=== PATIENT | male | born 1980 | race Caucasian/White ===

== ENCOUNTER 2020-07-13 07:04 | Day surgery (SDC) | payer MEDICAID ==
[~2020-07-13 07:04] MED LIST: Lactated Ringers 1,000 ML IV SCH; Lidocaine 1%/Sod Bicarbonate in NS 8.4% 1 ML Syringe IDERM PRN; Sodium Chloride 0.9% 10 ML Syringe FLUSH PRN
[2020-07-13] MEDS ORDERED: EPINEPHrine 1 MG/ML 30 ML MDV IRR SCH (07:15)
--- NOTE | 2020-07-13 07:31 | PCM.PREANE ---
Preanesthetic Assessment - Procedure Proposed Procedure: right knee video arthrosocopy - Anesthesia/Transfusion/Family Hx Anesthesia History: No Prior Anesthesia Family History of Anesthesia Reaction: No Transfusion History: No Prior Transfusion(s) - Review of Systems General: No Symptoms Pulmonary: No Symptoms Cardiovascular: No Symptoms Gastrointestinal: No Symptoms Neurological: No Symptoms - Physical Assessment NPO Status Date: 07/12/20 NPO Status Time: 23:30 Vital Signs: 109/71 74 96% 20 96.9 Height: 5 ft 6 in Weight: 103.7 kg ASA Class: 2 Mental Status: Alert & Oriented x3 Airway Class: Mallampati = 1 Dentition: Reports: Broken Tooth/Teeth Thyro-Mental Finger Breadths: 3 Mouth Opening Finger Breadths: 3 ROM/Head Extension: Full Lungs: Clear to Auscultation, Normal Respiratory Effort Cardiovascular: Regular Rate, Regular Rhythm - Lab Values: Laboratory Last Values MRSA (PCR) Negative 07/06/20 15:52 - Allergies Allergies/Adverse Reactions: Allergies Allergy/AdvReac Type Severity Reaction Status Date / Time erythromycin base Allergy Nausea Verified 07/12/20 11:58 pemoline Allergy Nausea Verified 07/12/20 11:58 Sulfa (Sulfonamide Allergy Nausea Verified 07/12/20 11:58 Antibiotics) - Blood Blood Available: No - Acknowledgements Anesthesia Type Planned: General Anesthesia Pt an Appropriate Candidate for the Planned Anesthesia: Yes Alternatives and Risks of Anesthesia Discussed w Pt/Guardian: Yes Pt/Guardian Understands and Agrees with Anesthesia Plan: Yes PreAnesthesia Questionnaire HEENT History: Reports: None Cardiovascular History: Reports: None Respiratory History: Reports: None Gastrointestinal History: Reports: None Genitourinary History: Reports: None 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 Musculoskeletal History: Reports: Arthritis, Other (See Below) Other Musculoskeletal History: degenerative joint disease, right shoulder pain, right knee pain, right patella disorder Neurological History: Reports: Concussion Psychiatric History: Reports: None Endocrine/Metabolic History: Reports: Obesity/BMI 30+ Hematologic History: Reports: None Immunologic History: Reports: None Oncologic (Cancer) History: Reports: None - Past Surgical History Head Surgeries/Procedures: Reports: None HEENT Surgical History: Reports: None Cardiovascular Surgical History: Reports: None Respiratory Surgical History: Reports: None GI Surgical History: Reports: None Male Surgical History: Reports: None Endocrine Surgical History: Reports: None Neurological Surgical History: Reports: None Musculoskeletal Surgical History: Reports: None Oncologic Surgical History: Reports: None Dermatological Surgical History: Reports: None - SUBSTANCE USE Tobacco Use Within Last Twelve Months: Smokeless Tobacco Second Hand Smoke Exposure: Yes Days Per Week of Alcohol Use: 0 Recreational Drug Use History: No - HOME MEDS Home Medications: Home Meds Baclofen 10 mg PO TID 07/12/20 [History] Pregabalin [Lyrica] 75 mg PO BID 07/12/20 [History] Aspirin 325 mg PO BID #84 tab 07/13/20 [Rx] Hydrocodone/Acetaminophen [[place] 5-325 Tablet] 1 - 2 tab PO Q6H PRN #20 07/13/20 [Rx] - CURRENT (IN HOUSE) MEDS Current Meds: Current Medications Epinephrine HCl (Adrenalin) 3 mg IRR ONETIME EBER Stop: 07/13/20 12:00 Lactated Ringer's (Ringers, Lactated) 1,000 mls @ 125 mls/hr IV ASDIRECTED EBER Stop: 07/13/20 23:00 Lidocaine/Sodium Bicarbonate (Buffered Lidocaine 1% In Ns 8.4%) 0.25 ml IDERM ONETIME PRN PRN Reason: Prior to IV Start Stop: 07/13/20 18:00 Sodium Chloride (Saline Flush) 10 ml FLUSH ASDIRECTED PRN PRN Reason: Keep Vein Open Stop: 07/13/20 18:00
[2020-07-13] MEDS ORDERED: Bupivacaine 0.25% 10 ML SDV ONE (07:38)
[2020-07-13] MEDS ORDERED: Ondansetron 4 MG/2 ML SDV ONE (08:07)
[2020-07-13] MEDS ORDERED: Rocuronium 50 MG/5 ML Vial ONE ×2 (08:07→08:47)
[2020-07-13] MEDS ORDERED: Midazolam 1 MG/ML 2 ML SDV ONE (08:08)
[2020-07-13] MEDS ORDERED: Propofol 200 MG/20 ML SDV ONE (08:08)
[2020-07-13] MEDS ORDERED: fentaNYL 250 MCG/5 ML SDV ONE (08:08)
[2020-07-13] MEDS ORDERED: Lidocaine 1% 4 ML ONE (08:08)
[2020-07-13] MEDS ORDERED: Ketorolac 30 MG/ML SDV ONE (08:08)
[2020-07-13] MEDS ORDERED: ceFAZolin 1 GM Vial ONE (08:11)
[2020-07-13] MEDS ORDERED: Lactated Ringers 1,000 ML ONE (08:57)
[2020-07-13] MEDS ORDERED: HYDROmorphone 0.5 MG/0.5 ML Syringe ONE ×2 (08:58→08:59)
[2020-07-13] MEDS ORDERED: fentaNYL 100 MCG/2 ML SDV IVPUSH PRN (09:59)
--- NOTE | 2020-07-13 10:00 | PCM.POSTAN ---
POST ANESTHESIA ASSESSMENT - MENTAL STATUS Mental Status: Alert, Oriented - VITAL SIGNS Vital Signs: Last Vital Signs Temp 36.1 C 07/13/20 07:10 Pulse 74 07/13/20 07:10 Resp 16 07/13/20 07:10 BP 109/71 07/13/20 07:10 Pulse Ox 96 07/13/20 07:10 - RESPIRATORY Respiratory Status: Respiratory Rate WNL, Airway Patent, O2 Saturation Stable, Supplemental Oxygen - CARDIOVASCULAR CV Status: Pulse Rate WNL, Blood Pressure Stable - GASTROINTESTINAL GI Status: No Symptoms - PAIN Pain Score: 0 - POST OP HYDRATION Hydration Status: Adequate & Stable - OBSERVATIONS Free Text/Narrative:: no anesthesia complications noted
[2020-07-13] MEDS ORDERED: Acetaminophen/HYDROcodone 325-5 MG Tab PO PRN (10:44)
--- NOTE | 2020-07-13 11:29 | PCM48HPAN ---
Post Anesthesia Note - EVALUATION WITHIN 48HRS OF ANESTHETIC Vital Signs in Normal Range: Yes Patient Participated in Evaluation: Yes Respiratory Function Stable: Yes Airway Patent: Yes Cardiovascular Function Stable: Yes Hydration Status Stable: Yes Pain Control Satisfactory: Yes Nausea and Vomiting Control Satisfactory: Yes Mental Status Recovered: Yes Vital Signs: Last Vital Signs Temp 36.1 C 07/13/20 10:45 Pulse 74 07/13/20 07:10 Resp 16 07/13/20 10:45 BP 137/87 07/13/20 10:45 Pulse Ox 97 07/13/20 10:45 - COMMENTS/OBSERVATIONS Free Text/Narrative:: no anesthesia complications noted
--- NOTE | 2020-07-19 16:18 | PCM.OPNOTE ---
- General Post-Op/Procedure Note Date of Surgery/Procedure: 07/13/20 Operative Procedure(s): right knee video arthroscopy with partial lateral meniscectomy and partial synovectomy Pre Op Diagnosis: right knee lateral meniscus tear with synovitis Post-Op Diagnosis: Same Anesthesia Technique: General LMA, Local Primary Surgeon: Dorian Jim Anesthesia Provider: George Garcia Plumbing Installer: Debi Leblanc E[place]at[place] in mLs: 5 Complications: None Condition: Good
--- NOTE | 2020-07-21 08:27 | OR ---
DATE OF OPERATION: 07/13/2020 SURGEON: Dorian Jim MD OPERATION PERFORMED: Right knee video arthroscopy with partial lateral meniscectomy and partial synovectomy. PREOPERATIVE DIAGNOSIS: Right knee lateral meniscus tear with synovitis. POSTOPERATIVE DIAGNOSIS: Right knee lateral meniscus tear with synovitis. ANESTHESIA: General LMA with local. ANESTHESIA PROVIDER: George Garcia CRNA. CLINICAL TRIALS MANAGER: Debi Leblanc PA-C ESTIMATED BLOOD LOSS: 5 mL. COMPLICATIONS: None. CONDITION: Stable. DESCRIPTION OF PROCEDURE: The patient was identified in the preop holding area. Proper site was marked and identified by surgeon. The patient was taken back to the operating table, where after adequate anesthesia, the patient's left lower extremity was placed in a well leg rock. Right lower extremity had a nonsterile tourniquet applied and a C-clamp rock applied. Foot of the bed was then lowered. Right lower extremity was then sterilely prepped and draped in the usual sterile fashion. OR time-out was performed. The patient received 2 g IV Ancef. Right lower extremity was exsanguinated. Tourniquet was insufflated to 250 mmHg. Standard anterolateral portal incision was made. Scope trocar was introduced to the knee joint. Patellofemoral joint showed minimal grade 1 chondromalacia. There was severe synovitis as well of the plica noted. At this time, attention was turned to the medial compartment, and with the use of a spinal needle, anteromedial portal was created. The patient was noted to have no meniscal tear and no chondromalacia of the medial compartment. The ACL was intact in the notch. Lateral compartment did show an anterior to midportion tear of the lateral meniscus with a free bucket-handle lesion. At this time, a partial lateral meniscectomy was performed back to a stable rim roughly taking only 15% of the lateral meniscus. The rest showed only grade 1 chondromalacia. At this time, a partial synovectomy was performed of the severe synovitis on the lateral and anterior aspect of the knee near the fat pad as well as removal of the plica. Excess saline was drained from the knee. 3-0 nylon sutures were used for closure of the skin. The patient tolerated the procedure well and sent to PACU in stable condition. MMODAL /[id number]
== END 2020-07-13 12:13 | disposition home or self-care (01) ==
LOC: JD.SDS 07:04
PROVIDERS: ATTEND Orthopaedic Surgery
DX: S83.251A Bucket-handle tear of lateral meniscus, current injury, right knee, initial encounter (principal); F17.290 Nicotine dependence, other tobacco product, uncomplicated; Z01.812 Encounter for preprocedural laboratory examination; Z20.828 Contact with and (suspected) exposure to other viral communicable diseases; Z88.1 Allergy status to other antibiotic agents; Z79.899 Other long term (current) drug therapy; Z88.8 Allergy status to other drugs, medicaments and biological substances; Z88.2 Allergy status to sulfonamides; E66.9 Obesity, unspecified; Z79.82 Long term (current) use of aspirin
CPT/HCPCS: 29881; 87641; A9270; J0171; J0690; J1170; J1885; J2001; J2250; J2405; J2704; J3010; J3490; J7120; 01400

== ENCOUNTER 2022-01-18 13:37 | Emergency (ER) | payer MEDICAID ==
[2022-01-18] MEDS ORDERED: Ketorolac 15 MG/ML SDV IM ONE (14:57)
[2022-01-18] MEDS ORDERED: Gabapentin 600 MG Tab PO STA (14:57)
== END 2022-01-18 16:39 | disposition home or self-care (01) ==
LOC: JD.ED 13:37
DX: M54.41 Lumbago with sciatica, right side (principal); M54.42 Lumbago with sciatica, left side; E66.9 Obesity, unspecified; Z68.30 Body mass index [BMI] 30.0-30.9, adult; Z86.16 Personal history of COVID-19; Z88.1 Allergy status to other antibiotic agents; Z88.8 Allergy status to other drugs, medicaments and biological substances; Z88.2 Allergy status to sulfonamides; Z79.82 Long term (current) use of aspirin
CPT/HCPCS: 96372; 99283; A9270; J1885; 99284

== ENCOUNTER 2022-02-25 17:44 | Emergency (ER) | payer MEDICAID | END 2022-02-25 19:07 | disposition home or self-care (01) | LOC: JD.ED 17:44 | DX: G56.02 Carpal tunnel syndrome, left upper limb (principal); Z79.899 Other long term (current) drug therapy; Z88.1 Allergy status to other antibiotic agents; Z88.2 Allergy status to sulfonamides; Z88.8 Allergy status to other drugs, medicaments and biological substances; Z86.16 Personal history of COVID-19 | CPT/HCPCS: 99282; 99283-25 ==

== ENCOUNTER 2022-04-15 11:40 | Emergency (ER) | payer MEDICAID ==
[2022-04-15] MEDS ORDERED: Sodium Chloride 0.9% 10 ML Syringe FLUSH PRN (11:56)
[2022-04-15] MEDS ORDERED: HYDROmorphone 0.5 MG/0.5 ML Syringe IVPUSH ONE ×2 (11:57→13:14)
[2022-04-15] MEDS ORDERED: Ketorolac 30 MG/ML SDV IVPUSH ONE (13:14)
== END 2022-04-15 15:05 | disposition home or self-care (01) ==
LOC: JD.ED 11:40 → SUPCPDRO 11:40 → JD.ED 15:05
DX: G89.29 Other chronic pain (principal); M54.50 Low back pain, unspecified; M54.2 Cervicalgia; F17.210 Nicotine dependence, cigarettes, uncomplicated; E66.9 Obesity, unspecified; Z68.37 Body mass index [BMI] 37.0-37.9, adult; Z88.2 Allergy status to sulfonamides; Z88.8 Allergy status to other drugs, medicaments and biological substances; Z88.1 Allergy status to other antibiotic agents
CPT/HCPCS: 96374; 96375; 96376; 99283; J1170; J1885; J3360; J3490

== ENCOUNTER 2022-05-24 17:42 | Emergency (ER) | payer MEDICAID ==
[2022-05-24] MEDS ORDERED: HYDROmorphone 1 MG/ML Syringe IM ONE (18:16)
[2022-05-24] MEDS ORDERED: Diazepam 5 MG Tab PO ONE (18:16)
[2022-05-24] MEDS ORDERED: Ketorolac 60 MG/2 ML SDV IM ONE (18:16)
== END 2022-05-24 18:43 | disposition home or self-care (01) ==
LOC: JD.ED 17:42
DX: M54.50 Low back pain, unspecified (principal); E66.9 Obesity, unspecified; Z68.38 Body mass index [BMI] 38.0-38.9, adult; Z88.1 Allergy status to other antibiotic agents; Z88.2 Allergy status to sulfonamides; Z88.8 Allergy status to other drugs, medicaments and biological substances; Z79.899 Other long term (current) drug therapy; Z86.16 Personal history of COVID-19
CPT/HCPCS: 96372; 99283; A9270-GY; J1170; J1885

== ENCOUNTER 2022-06-17 18:40 | Emergency (ER) | payer MEDICAID ==
[2022-06-17] MEDS ORDERED: Sodium Chloride 0.9% 1,000 ML IV SCH (19:15)
[2022-06-17] MEDS ORDERED: Ondansetron 4 MG/2 ML SDV IVPUSH ONE (19:15)
[2022-06-17] MEDS ORDERED: Sodium Chloride 0.9% 10 ML Syringe FLUSH PRN (19:15)
[2022-06-17 20:56] LABS: ESTIMATED GFR 98 mL/min (>60)
== END 2022-06-17 22:07 | disposition home or self-care (01) ==
LOC: JD.ED 18:40
DX: R42 Dizziness and giddiness (principal); E66.9 Obesity, unspecified; Z68.30 Body mass index [BMI] 30.0-30.9, adult; Z88.1 Allergy status to other antibiotic agents; Z88.8 Allergy status to other drugs, medicaments and biological substances; Z88.2 Allergy status to sulfonamides; Z86.16 Personal history of COVID-19
CPT/HCPCS: 36415; 70450; 80053; 83735; 84484; 85025; 93005; 96361; 96374; 99284; A9270; J2405; J3490; J7030

== ENCOUNTER 2022-06-24 12:59 | Emergency (ER) | payer MEDICAID ==
[2022-06-24] MEDS ORDERED: Dextrose 5%-0.9% NaCl 1,000 ML IV SCH (13:30)
[2022-06-24] MEDS ORDERED: LORazepam 2 MG/ML SDV IVPUSH ONE (13:55)
[2022-06-24] MEDS ORDERED: Metoclopramide 10 MG/2 ML SDV IVPUSH ONE (13:56)
== END 2022-06-24 18:33 | disposition home or self-care (01) ==
LOC: JD.ED 12:59
DX: I95.1 Orthostatic hypotension (principal); E66.9 Obesity, unspecified; Z68.32 Body mass index [BMI] 32.0-32.9, adult
CPT/HCPCS: 36415; 70450; 71045; 72125; 80053; 80307; 82009; 82553; 83605; 83735; 83880; 84484; 85025; 85379; 85610; 85730; 86140; 93005; 96361; 96374; 96375; 99285; J2060; J2765; J7042; 93010; 99283

== ENCOUNTER 2022-08-19 11:30 | Emergency (ER) | payer MEDICAID ==
[2022-08-19] MEDS ORDERED: Sodium Chloride 0.9% 10 ML Syringe FLUSH PRN (12:16)
[2022-08-19 12:50] LABS: ESTIMATED GFR 111 mL/min (>60)
[2022-08-19 12:55] LABS: ACETAMINOPHEN 0 ug/mL (10-30)
== END 2022-08-19 15:06 | disposition home or self-care (01) ==
LOC: JD.ED 11:30
DX: R56.9 Unspecified convulsions (principal); J45.909 Unspecified asthma, uncomplicated; E66.9 Obesity, unspecified; Z68.36 Body mass index [BMI] 36.0-36.9, adult; Z88.1 Allergy status to other antibiotic agents; Z88.2 Allergy status to sulfonamides; Z88.8 Allergy status to other drugs, medicaments and biological substances; Z79.899 Other long term (current) drug therapy
CPT/HCPCS: 36415; 70450; 71045; 80053; 80143; 80179; 80306; 80307; 81003; 82550; 83605; 83735; 84443; 84484; 85025; 86140; 93005; 99285; J3490

== ENCOUNTER 2023-08-02 14:23 | Emergency (ER) | payer MEDICAID ==
[2023-08-02] MEDS ORDERED: Sodium Chloride 0.9% 10 ML Syringe FLUSH PRN (16:10)
[2023-08-02] MEDS ORDERED: Sodium Chloride 0.9% 1,000 ML IV STA (16:11)
[2023-08-02 17:06] LABS: BASOPHILS PERCENT AUTO 0.4 % (0.0-1.0); EOSINOPHILS ABSOLUTE AUTO 0.1 K/mm3 (0.0-0.4); EOSINOPHILS PERCENT AUTO 0.5 % (0.0-6.0); HEMATOCRIT 45.5 % (42.0-52.0); HEMOGLOBIN 15.9 gm/dl (14.0-18.0); IMMATURE GRAN ABSOLUTE AUTO 0.03 K/mm3 (0.00-0.05); IMMATURE GRAN PERCENT AUTO 0.3 % (0.0-0.4); LYMPHOCYTES ABSOLUTE AUTO 2.7 K/mm3 (1.0-4.8); LYMPHOCYTES PERCENT AUTO 24.8 % (24.0-44.0); MEAN CORPUSCULAR HEMOGLOBIN 31.2 pg (28.0-32.0); MEAN CORPUSCULAR HGB CONC 34.9 g/dl (32.0-36.0); MEAN CORPUSCULAR VOLUME 89.2 fl (83.0-99.0); MONOCYTES ABSOLUTE AUTO 0.5 K/mm3 (0.0-0.8); MONOCYTES PERCENT AUTO 4.9 % (0.0-8.0); NEUTROPHILS ABSOLUTE AUTO 7.6 K/mm3 (1.8-7.7); NEUTROPHILS PERCENT AUTO 69.1 % (41.0-71.0); PLATELET COUNT,PLT 243 K/mm3 (150-400); WHITE BLOOD CELL COUNT,WBC 11.02 K/mm3 (3.9-11.3)
[2023-08-02 17:27] LABS: A/G RATIO 1.2 (1-2); ALBUMIN 4.1 g/dl (3.4-5.0); ANION GAP 14.9 (5-15); BILIRUBIN TOTAL 0.5 mg/dL (0.2-1.0); CALCIUM 9.1 mg/dL (8.5-10.1); EST CRCL DRUG DOSING (CG) 87.73 mL/min; POTASSIUM,K 3.9 mEq/L (3.5-5.1); PROTEIN TOTAL,TP 7.4 g/dl (6.4-8.2)
[2023-08-02 17:42] LABS: CORONAVIRUS COVID-19 NAA NEGATIVE (NEGATIVE); INFLUENZA A NAA NEGATIVE (NEGATIVE); RESPIRATORY SYNCYTIAL VIR NAA NEGATIVE (NEGATIVE)
== END 2023-08-02 18:55 | disposition home or self-care (01) ==
LOC: JD.ED 14:23
DX: R42 Dizziness and giddiness (principal); E66.9 Obesity, unspecified; F17.210 Nicotine dependence, cigarettes, uncomplicated; Z88.1 Allergy status to other antibiotic agents; Z88.8 Allergy status to other drugs, medicaments and biological substances; Z88.2 Allergy status to sulfonamides
CPT/HCPCS: 0241U; 36415; 70450; 80053; 85025; 93005; 99284; J3490; J7030; 93010

== ENCOUNTER 2023-10-04 13:41 | Emergency (ER) | payer MEDICAID ==
[2023-10-04] MEDS ORDERED: Ketorolac 60 MG/2 ML SDV IM ONE (15:44)
== END 2023-10-04 17:32 | disposition home or self-care (01) ==
LOC: JD.ED 13:41
DX: M25.551 Pain in right hip (principal); J45.909 Unspecified asthma, uncomplicated; F17.210 Nicotine dependence, cigarettes, uncomplicated; E66.9 Obesity, unspecified; Z68.38 Body mass index [BMI] 38.0-38.9, adult; Z86.16 Personal history of COVID-19; Z88.1 Allergy status to other antibiotic agents; Z88.2 Allergy status to sulfonamides; Z88.8 Allergy status to other drugs, medicaments and biological substances; Z79.899 Other long term (current) drug therapy
CPT/HCPCS: 73502; 96372; 99283; J1885

== ENCOUNTER 2024-08-14 14:45 | Emergency (ER) | payer MEDICAID ==
[2024-08-14] MEDS ORDERED: levETIRAcetam 1,000 MG in Sodium Chloride 0.9% 100 ML IV ONE (15:00)
[2024-08-14] MEDS: levETIRAcetam 500 MG/5 ML SDV IVPUSH ONE ×2 (15:36→15:37)
[2024-08-14 15:48] LABS: BASOPHILS ABSOLUTE AUTO 0.1 K/mm3 (0.0-0.2); BASOPHILS PERCENT AUTO 0.4 % (0.0-1.0); EOSINOPHILS ABSOLUTE AUTO 0.1 K/mm3 (0.0-0.4); EOSINOPHILS PERCENT AUTO 1.2 % (0.0-6.0); HEMATOCRIT 45.2 % (42.0-52.0); HEMOGLOBIN 15.7 gm/dl (14.0-18.0); IMMATURE GRAN ABSOLUTE AUTO 0.03 K/mm3 (0.00-0.05); IMMATURE GRAN PERCENT AUTO 0.3 % (0.0-0.4); LYMPHOCYTES ABSOLUTE AUTO 2.5 K/mm3 (1.0-4.8); LYMPHOCYTES PERCENT AUTO 22.2 % (24.0-44.0); MEAN CORPUSCULAR HEMOGLOBIN 30.5 pg (28.0-32.0); MEAN CORPUSCULAR HGB CONC 34.7 g/dl (32.0-36.0); MEAN CORPUSCULAR VOLUME 87.8 fl (83.0-99.0); MEAN PLATELET VOLUME 9.9 fl (9.4-12.4); MONOCYTES ABSOLUTE AUTO 0.7 K/mm3 (0.0-0.8); MONOCYTES PERCENT AUTO 6.6 % (0.0-8.0); NEUTROPHILS ABSOLUTE AUTO 7.8 K/mm3 (1.8-7.7); NEUTROPHILS PERCENT AUTO 69.3 % (41.0-71.0); PLATELET COUNT,PLT 237 K/mm3 (150-400); RED BLOOD CELL COUNT 5.15 M/mm3 (4.52-5.90); WHITE BLOOD CELL COUNT,WBC 11.26 K/mm3 (3.9-11.3)
[2024-08-14 16:15] LABS: ALBUMIN 3.7 g/dl (3.4-5.0); ANION GAP 13.8 (5-15); BILIRUBIN TOTAL 0.4 mg/dL (0.2-1.0); C-REACTIVE PROTEIN 0.91 mg/dL (<0.30); EST CRCL DRUG DOSING (CG) 86.84 mL/min; PROTEIN TOTAL,TP 7.4 g/dl (6.4-8.2)
[2024-08-14 16:16] LABS: POTASSIUM,K 3.8 mEq/L (3.5-5.1)
[2024-08-14 16:17] LABS: LACTIC ACID 1.9 mmol/L (0.4-2.0)
[2024-08-14] MEDS: HYDROmorphone 0.5 MG/0.5 ML Syringe IVPUSH ONE (18:05)
[2024-08-14] MEDS: Metoclopramide 10 MG/2 ML SDV IVPUSH ONE (18:05)
== END 2024-08-14 18:30 | disposition home or self-care (01) ==
LOC: JD.ED 14:45
DX: G40.209 Localization-related (focal) (partial) symptomatic epilepsy and epileptic syndromes with complex partial seizures, not intractable, without status epilepticus (principal); J45.909 Unspecified asthma, uncomplicated; E66.9 Obesity, unspecified; Z68.38 Body mass index [BMI] 38.0-38.9, adult; Z86.16 Personal history of COVID-19; Z79.84 Long term (current) use of oral hypoglycemic drugs; Z79.899 Other long term (current) drug therapy; Z88.1 Allergy status to other antibiotic agents; Z88.8 Allergy status to other drugs, medicaments and biological substances; Z88.2 Allergy status to sulfonamides
CPT/HCPCS: 36415; 70450; 80053; 83605; 83735; 85025; 86140; 96374; 96375; 99285; J1171; J1953; J2765; 99284

== ENCOUNTER 2024-08-22 14:05 | Emergency (ER) | payer MEDICAID ==
[2024-08-22 16:52] LABS: BASOPHILS ABSOLUTE AUTO 0.1 K/mm3 (0.0-0.2); BASOPHILS PERCENT AUTO 0.6 % (0.0-1.0); EOSINOPHILS ABSOLUTE AUTO 0.1 K/mm3 (0.0-0.4); EOSINOPHILS PERCENT AUTO 1.2 % (0.0-6.0); HEMATOCRIT 46.5 % (42.0-52.0); HEMOGLOBIN 15.9 gm/dl (14.0-18.0); IMMATURE GRAN ABSOLUTE AUTO 0.03 K/mm3 (0.00-0.05); IMMATURE GRAN PERCENT AUTO 0.3 % (0.0-0.4); LYMPHOCYTES ABSOLUTE AUTO 2.9 K/mm3 (1.0-4.8); LYMPHOCYTES PERCENT AUTO 27.7 % (24.0-44.0); MEAN CORPUSCULAR HEMOGLOBIN 30.2 pg (28.0-32.0); MEAN CORPUSCULAR HGB CONC 34.2 g/dl (32.0-36.0); MEAN CORPUSCULAR VOLUME 88.2 fl (83.0-99.0); MEAN PLATELET VOLUME 10.2 fl (9.4-12.4); MONOCYTES ABSOLUTE AUTO 0.8 K/mm3 (0.0-0.8); MONOCYTES PERCENT AUTO 7.1 % (0.0-8.0); NEUTROPHILS ABSOLUTE AUTO 6.7 K/mm3 (1.8-7.7); NEUTROPHILS PERCENT AUTO 63.1 % (41.0-71.0); PLATELET COUNT,PLT 241 K/mm3 (150-400); RED BLOOD CELL COUNT 5.27 M/mm3 (4.52-5.90); WHITE BLOOD CELL COUNT,WBC 10.58 K/mm3 (3.9-11.3)
[2024-08-22 17:13] LABS: A/G RATIO 1.1 (1-2); ALBUMIN 3.9 g/dl (3.4-5.0); BILIRUBIN TOTAL 0.3 mg/dL (0.2-1.0); CALCIUM 9.2 mg/dL (8.5-10.1); EST CRCL DRUG DOSING (CG) 89.97 mL/min; MAGNESIUM 2.2 mg/dL (1.8-2.4); PROTEIN TOTAL,TP 7.5 g/dl (6.4-8.2)
[2024-08-22 18:51] LABS: BARBITURATE SCREEN,URINE NEGATIVE (CUTOFF=200); BENZODIAZEPINES SCREEN,URINE NEGATIVE (CUTOFF=150); BUPRENORPHINE SCREEN,URINE NEGATIVE (CUTOFF=10); METHADONE SCREEN, URINE NEGATIVE (CUT0FF=200); METHAMPHETAMINES SCREEN, URINE NEGATIVE (CUTOFF=500); OXYCODONE SCREEN,URINE NEGATIVE (CUT0FF=100); THC SCREEN,URINE 20 NG/ML NEGATIVE (CUTOFF=50)
[2024-08-22 18:54] LABS: AMPHETAMINES SCREEN, URINE NEGATIVE (CUTOFF=500)
[2024-08-22] MEDS: levETIRAcetam 500 MG Tab PO ONE (19:55)
== END 2024-08-22 19:52 | disposition home or self-care (01) ==
LOC: JD.ED 14:05
DX: R56.9 Unspecified convulsions (principal); E78.00 Pure hypercholesterolemia, unspecified; J45.909 Unspecified asthma, uncomplicated; E66.9 Obesity, unspecified; Z68.37 Body mass index [BMI] 37.0-37.9, adult; Z86.16 Personal history of COVID-19; Z79.84 Long term (current) use of oral hypoglycemic drugs; Z79.899 Other long term (current) drug therapy; Z88.1 Allergy status to other antibiotic agents; Z88.8 Allergy status to other drugs, medicaments and biological substances; Z88.2 Allergy status to sulfonamides
CPT/HCPCS: 36415; 80053; 80306; 82947; 83605; 83735; 85025; 93005; 99284